=== PATIENT | male | born 1980 | race African-American/Black ===

== ENCOUNTER 2019-07-26 18:50 | Emergency (ER) | payer MEDICAID ==
[~2019-07-26] VITALS: Ht 170.2 cm; Wt 57.0 kg
[2019-07-26] MEDS ORDERED: IBUPROFEN 600MG TABLET PO ONE (22:15)
[2019-07-26] MEDS ORDERED: HYDROCODONE/APAP 7.5/325MG 1 TAB TABLET PO ONE (22:15)
[2019-07-27 00:20] VITALS: BP 129/83
== END 2019-07-27 00:20 | disposition home or self-care (01) ==
LOC: ER 18:50
DX: S20.212A Contusion of left front wall of thorax, initial encounter (principal); S20.211A Contusion of right front wall of thorax, initial encounter; S83.92XA Sprain of unspecified site of left knee, initial encounter; Y08.89XA Assault by other specified means, initial encounter; Y93.9 Activity, unspecified; Y92.9 Unspecified place or not applicable
CPT/HCPCS: 71045; 73560; 99283; Z7610